=== PATIENT | male | born 1985 | race Caucasian/White ===

== ENCOUNTER 2019-03-26 11:29 | Emergency (ER) | payer SELFPAY ==
[~2019-03-26] VITALS: Ht 177.8 cm; Wt 90.7 kg
[2019-03-26 14:30] VITALS: BP 121/78
== END 2019-03-26 14:37 | disposition home or self-care (01) ==
LOC: EDBD 11:29 → ER 11:36
DX: S93.402A Sprain of unspecified ligament of left ankle, initial encounter (principal); S90.30XA Contusion of unspecified foot, initial encounter; S50.02XA Contusion of left elbow, initial encounter; F17.210 Nicotine dependence, cigarettes, uncomplicated; F12.10 Cannabis abuse, uncomplicated; Y08.89XA Assault by other specified means, initial encounter; Y93.89 Activity, other specified; Y92.89 Other specified places as the place of occurrence of the external cause; Y99.8 Other external cause status
CPT/HCPCS: 73080; 73600; 73630

== ENCOUNTER 2022-05-25 01:44 | Emergency (ER) | payer SELFPAY ==
[~2022-05-25] VITALS: Ht 177.8 cm; Wt 90.9 kg
[2022-05-25 07:10] VITALS: BP 112/77
[2022-05-25] MEDS ORDERED: IBUP800T27 PO (07:50)
== END 2022-05-25 08:06 | disposition home or self-care (01) ==
LOC: ER 01:44
DX: S62.355A Nondisplaced fracture of shaft of fourth metacarpal bone, left hand, initial encounter for closed fracture (principal); F17.210 Nicotine dependence, cigarettes, uncomplicated; F12.10 Cannabis abuse, uncomplicated; W22.8XXA Striking against or struck by other objects, initial encounter; Y93.89 Activity, other specified; Y92.89 Other specified places as the place of occurrence of the external cause; Y99.8 Other external cause status
CPT/HCPCS: 29125; 73130